=== PATIENT | female | born 1935 | race Caucasian/White ===

== ENCOUNTER 2024-08-12 03:39 | Emergency (ER) | payer MEDICARE ==
[~2024-08-12] VITALS: Ht 170.2 cm; Wt 65.8 kg
[2024-08-12] MEDS ORDERED: LIDOCAINE 1%-EPI 1:100,000 20 ML VIAL ONE (03:59)
[2024-08-12] MEDS ORDERED: TDAP [DIPH/PERTUSSIS/TET] 0.5 ML VIAL IM ONE (04:27)
[2024-08-12] MEDS: TDAP [DIPH/PERTUSSIS/TET] 0.5 ML VIAL IM ONE (04:32)
[2024-08-12 09:11] VITALS: BP 140/80; TEMP 98.5; O2SAT 99
== END 2024-08-12 09:11 | disposition home or self-care (01) ==
LOC: ER 03:44
DX: S01.81XA Laceration without foreign body of other part of head, initial encounter (principal); I10 Essential (primary) hypertension; E78.00 Pure hypercholesterolemia, unspecified; Z60.2 Problems related to living alone; W18.30XA Fall on same level, unspecified, initial encounter; Y93.89 Activity, other specified; Y92.89 Other specified places as the place of occurrence of the external cause; Y99.8 Other external cause status
CPT/HCPCS: 12014; 70450; 72125; 90471; 90715; 99285; J3490